=== PATIENT | female | born 1995 | race Caucasian/White ===

== ENCOUNTER 2022-06-01 08:07 | Outpatient (CLI) | payer MEDICAID, SELFPAY ==
[2022-06-01 08:29] VITALS: BMI 27.6
[2022-06-01 08:32] VITALS: TEMP 36.7; O2SAT 97
[2022-06-01 08:34] VITALS: BP 104/63; PULSE 98; O2SAT 97
[2022-06-01 09:26] LABS: Bacteria 0 SEEN /hpf (None Seen); Mucous, Urine 0 SEEN /hpf (<or=2+); Red Blood Cells-Urine 0 SEEN /hpf (0-5); White Blood Cells 0 SEEN /hpf (0-5)
[2022-06-01 09:30] LABS: Color, Urine Yellow (Yellow); Glucose, Dipstick Normal (Normal); Ketone-Dipstick Negative (Negative); Leukocyte Esterase-Dipstick Negative /ul (Negative); Nitrite-Dipstick Negative (Negative); Occult Blood-Urine Negative /ul (Negative); Protein-Dipstick Negative (Negative); Specific Gravity, Urine 1.005 (1.002-1.030); Urine Bilirubin Dipstick Negative (Negative); Urine Clarity Clear (Clear); Urine Urobilinogen Normal (Normal)
[2022-06-01 09:40] LABS: Squamous Epithelial Cells - UA 0-5 SEEN /hpf (5-10)
--- NOTE | 2022-06-15 16:42 | OB.TRI.PN_ITS ---
Progress Notes Progress Note: 26 year old female at 21w3d. Presented for abdominal and lower back pain. Laboratory Studies: Laboratory Tests 06/01/22 Range/Units 09:20 Urine Color Yellow (Yellow) Urine Clarity Clear (Clear) Urine pH 7.0 (5.0 - 8.0) Ur Specific [place] 1.005 (1.002-1.030) Urine Protein Negative (Negative) mg/dl Urine Glucose (UA) Normal (Normal) mg/dl Urine Ketones Negative (Negative) mg/dl Urine Occult Blood Negative (Negative) /ul Urine Nitrite Negative (Negative) Urine Bilirubin Negative (Negative) mg/dL Urine Urobilinogen Normal (Normal) mg/dl Ur Leukocyte Esterase Negative (Negative) /ul Urine RBC 0 SEEN (0-5) /hpf Urine WBC 0 SEEN (0-5) /hpf Ur Squamous Epith Cells 0-5 SEEN (5-10) /hpf Urine Bacteria 0 SEEN (None Seen) /hpf Urine Mucus 0 SEEN (<or=2+) /hpf FHR 155 Assessment & Plan (1) Abdominal pain affecting : PLAN: Plan No signs of PTL D/C home
== END 2022-06-01 09:20 | disposition home or self-care (01) ==
PROVIDERS: Referring Provider Advanced Practice Midwife; Visit Provider Advanced Practice Midwife
DX: O26.892 Other specified pregnancy related conditions, second trimester (principal); R10.9 Unspecified abdominal pain; M54.50 Low back pain, unspecified; Z3A.21 21 weeks gestation of pregnancy
CPT/HCPCS: 59050; 81001; 87086; 87088

== ENCOUNTER 2022-09-21 19:45 | Outpatient (CLI) | payer MEDICAID, SELFPAY ==
[2022-09-21 20:02] VITALS: BP 118/76; PULSE 77; TEMP 37.2; O2SAT 98
[2022-09-21 20:03] VITALS: TEMP 37.2
[2022-09-21 20:06] VITALS: BMI 29.1
[2022-09-21 22:14] LABS: Group B Strep DNA By PCR Negative (Negative); Internal Control PASS; Probe Check PASS; Specimen Processing Control PASS
--- NOTE | 2022-09-28 16:39 | OB.TRI.PN ---
Progress Notes Progress Note: at 37w3d who presents for contractions. No vaginal bleeding or fluid leakage. Laboratory Studies: Laboratory Tests 09/21/22 Range/Units 20:16 Group B Strep DNA Negative (Negative) Specimen Comment Not Reportable 120, moderate variability, accels, no decels. Assessment & Plan (1) Irregular contractions: PLAN: Plan Irregular contractions, no signs of labor. D/C home
== END 2022-09-21 23:10 | disposition home or self-care (01) ==
LOC: WPOUT 19:56 → WP 19:56
PROVIDERS: Visit Provider Advanced Practice Midwife
DX: O47.1 False labor at or after 37 completed weeks of gestation (principal); Z3A.37 37 weeks gestation of pregnancy
CPT/HCPCS: 59025; 59050; 87081; 87653; 99221; G0378

== ENCOUNTER 2022-10-05 07:05 | Inpatient (IN) | payer MEDICAID, SELFPAY ==
[2022-10-05] VITALS (60 sets, daily range): BP systolic 92–126; BP diastolic 46–73; PULSE 55–88; RESP 15; TEMP 36.2–37; O2SAT 83–100; BMI 28.6
[2022-10-05] MEDS: Oxytocin 15 Units/NS 250ml 15 UNITS/250 ML IV.SOLN 2 UNITS IV (07:49)
[2022-10-05] MEDS: Lactated Ringers 1,000 ML 50 ML IV ×2 (07:49→16:52)
[2022-10-05 08:02] LABS: Basophil# 0.03 X10^3/uL; Basophil% 0.2 % (0-1); Eosinophil# 0.02 X10^3/uL; Eosinophils% 0.1 % (0-5); Hematocrit 34.4 % (37-47); Hemoglobin 11.8 g/dL (12.0-15.0); Lymphocyte % 20.1 % (19-41); Mean Corp Hgb Conc 34.3 g/dL (32-36); Mean Corpuscular Hgb 31.7 pg (27.0-32.0); Mean Corpuscular Volume 92.5 fL (81-99); Mean Platelet Vol. 10.1 fl (6.2-12.0); Monocyte# 0.59 X10^3/uL; Monocyte% 4.4 % (0-10); NRBC Flagged by Analyzer 0 % (0-5); Neutrophil # 9.99 X10^3/uL (2.7-7.7); Neutrophil % 74.4 % (47-70); Platelet Count 219 K/mm3 (150-450); RBC Distribution Width SD 43.8 fl (35.1-43.9); Red Blood Count 3.72 M/mm3 (4.2-5.4); White Blood Count 13.4 K/mm3 (4.4-11.0)
--- NOTE | 2022-10-05 08:23 | PCM.HP.OB ---
HPI - General General Date of Admission: 10/05/22 HPI Narrative JEANMARIE ROSE, is a 27 F at 39.3 weeks gestation who presents for elective induction of labor. complicatted by tobacco use and HGSIL on PAP. She has a history of depression. Maternal Data Information GORAN Calculator Estimated Delivery Date Method Current WG Current Estimate 10/09/22 Manual 39w 3d PFSH PFSH Medical History depression Home Medications 1 tab PO/SL DAILY Check with primary doctor 06/01/22 [History Last Taken 10/05/22 04:00] ondansetron HCl 4 mg tablet 4 mg PO PRN PRN Nausea And Vomiting 06/01/22 [History Last Taken 10/05/22 04:00] Allergy/AdvReac Type Severity Reaction Status Date / Time No Known Allergies Allergy Verified 09/21/22 20:08 Surgical History (Updated 10/05/22 @ 07:36 by Abi Escobar) History of surgery ROS Eyes Eyes: Denies blurry vision, change in vision or spots in vision ENT HEENT: Denies dizziness or headache(s) Cardiovascular Cardiovascular: Denies abdominal pain, chest pain or dyspnea Respiratory/Chest Respiratory/Chest: Denies cough, dyspnea, shortness of breath at rest or shortness of breath with exertion Gastrointestinal Gastrointestinal: Denies abdominal pain, diarrhea or vomiting Genitourinary Genitourinary: Denies change in urinary stream, difficulty urinating or dysuria Musculoskeletal Musculoskeletal: Reports none Integumentary Integumentary: Denies rash Neurologic Neurologic: Denies dizziness, headache(s), memory loss or weakness Psychiatric Psychiatric: Reports none Vital Signs Vital Signs Vital Signs: 10/05/22 07:48 10/05/22 07:48 10/05/22 07:49 Temperature Temperature Source Pulse Rate 82 Blood Pressure 113/58 L BP Systolic 113 BP Diastolic 58 Pulse Ox 98 10/05/22 07:49 10/05/22 07:43 10/05/22 07:43 Temperature 98.5 F Temperature Source Temporal Pulse Rate 86 Blood Pressure BP Systolic BP Diastolic Pulse Ox Weight Weight: 188 lb 8 oz Body Mass Index (BMI) 28.6 Physical Exam Const alert, oriented x3 and no apparent distress General Appearance: cooperative Orientation / Consciousness: awake Exam Limitations: no limitations HEENT normocephalic Head and Scalp: normal to inspection Eyes General Eye: normal appearance of both eyes Neck full ROM and no lymphadenopathy Lymph Lymphatic: no lymphadenopathy noted Chest inspection of chest normal Resp normal respiratory effort, normal air movement and clear to auscultation bilaterally Effort and Inspection: able to speak in complete sentences and symmetric chest movement Cardio regular rate and regular rhythm GI normal to inspection, nondistended, normoactive bowel sounds Manual OB Exam: presentation cephalic, dilated 4, effaced 80 and station 0 Amniotic Fluid: clear amniotic fluid Back/Spine normal ROM Extremity full ROM and no calf tenderness Skin no rashes or lesions noted General Skin Exam: no breakdown Neuro oriented x3 and CN's II-XII intact bilaterally Psych mental status grossly normal and thought process normal Labs Labs Labs: Blood Type Pending Antibody Screen Pending Hct 34.4 % (37-47) L Hgb 11.8 g/dL (12.0-15.0) L Syphilis Total Ab Pending Group B Strep DNA Negative (Negative) Assessment & Plan (1) 39 weeks gestation of : (2) Elective induction of labor planned: (3) History of depression: (4) Tobacco use affecting , antepartum: (5) HGSIL (high grade squamous intraepithelial lesion) on Pap smear of cervix: PLAN: Plan Admit to labor and delivery CE- /-3- ballotable GBS negative Routine labs Start IV and run fluids per orders Start Pitocin at 2 mu /min and increase per policy Epidural when indicated Anticipate Dr. Eli notified of admission and is collaborating physician
[2022-10-05 08:40] LABS: Syphilis Antibodies Non-reactive
[2022-10-05] MEDS: LACTATED RINGERS 500 ML 999 ML IV (12:50)
[2022-10-05] MEDS: fentaNYL-bupivacaine (epidural) 100 ML BAG EPIDURAL (13:37)
--- NOTE | 2022-10-05 16:55 | PN.OBGYN_ITS ---
Subjective Subjective Patient seen at bedside. Comfortable with epidural anesthesia. Objective Data Objective Data Vital Signs: Vital Signs Temp Pulse BP Pulse Ox 98.1 F 72 113/59 L 100 10/05/22 16:31 10/05/22 16:32 10/05/22 16:32 10/05/22 15:39 Weight: 188 lb 8 oz Body Mass Index (BMI) 28.6 Intake & Output: Intake and Output for Last 24 Hours 10/03/22 10/04/22 10/05/22 23:59 23:59 23:59 Intake Total 993.54 / 993.54 Balance 993.54 / 993.54 Lab / Micro Data Result Diagrams: 10/05/22 07:40 Labs: Laboratory Results - last 24 hr 10/05/22 07:40: WBC 13.4 H, RBC 3.72 L, Hgb 11.8 L, Hct 34.4 L, MCV 92.5, MCH 31.7, MCHC 34.3, RDW Std Deviation 43.8, RDW Coeff of Cristopher 13.0, Plt Count 219, MPV 10.1, Immature Gran % (Auto) 0.800, Neut % (Auto) 74.4 H, Lymph % (Auto) 20.1, [place] % (Auto) 4.4, Eos % (Auto) 0.1, Baso % (Auto) 0.2, Absolute Neuts (auto) 10.0 H, Absolute Lymphs (auto) 2.70, Nucleated RBC % 0 10/05/22 07:40: Blood Type A POSITIVE, Antibody Screen NEGATIVE 10/05/22 07:40: Syphilis Total Ab Non-reactive Assessment & Plan (1) Elective induction of labor planned: (2) 39 weeks gestation of : (3) Spontaneous rupture of amniotic membranes: PLAN: Plan SROM upon entering patient's room for clear fluid CE- 6/-1 Cat. 1 tracing, NST reactive Continue Pitocin IV per policy Anticipate
--- NOTE | 2022-10-05 17:34 | EX.PCM.OBRPT ---
Assessment & Plan (1) (spontaneous vaginal delivery): (2) Laceration, obstetrical, first degree: (3) History of depression: Maternal Data Information GORAN Calculator Estimated Delivery Date Method Current WG Current Estimate 10/09/22 Manual 39w 3d Vaginal Delivery Maternal Presentation Maternal Presentation: Elective Induction Maternal Presentation: at 39.3 weeks gestation for scheduled elective induction. Type of Induction: Pitocin Operative Information Date of Procedure: 10/05/22 Pre-Operative Diagnosis: Term gestation, elective induction of labor Post-Operative Diagnosis: , live female Surgery / Procedure Performed: Spontaneous Vaginal Delivery Type of Anesthesia: Epidural Drain: [place] to straight drain Estimated Blood Loss: 200 Time of Delivery: 17:06 Findings Description of Procedure: Patient feeling pressure. Found to be complete dilation and +2 station. With minimal maternal effort, on first push, head delivered followed by anterior shoulder and remainder of body without traction. Vigorous female placed on maternal abdomen and attended to by nursing staff. Pitocin IV started for active management of the third stage of labor. Cord clamped and cut after 4 minute delay by FOB. placed skin to skin with patient. Placenta delivered spontaneously and intact. First degree laceration repaired in usual fashion using 3-0 Vicryl Rapid. Hemostasis obtained. Fundus firm 2 below U. EBL 200 cc. APGARS 9/9. Patient and infant bonding well at this time. Planning on formula feeding. Dr. Eli notified of delivery. Presentation: Vertex Amniotic Membrane Rupture Type: Spontaneous Time of Membrane Rupture: 1645 Amniotic Fluid Description: Clear Placental Delivery Description: Spontaneous Placenta Disposition: [facility] Cord Vessel Description: 3 Vessels Cord Entanglement: None Infant A Gender: Female (1 minute): 9 (5 minute): 9 Delayed Cord Clamping: Yes Post Vaginal Delivery Medications Given After Delivery: IV Pitocin Episiotomy Description: None Laceration: 1st degree Complication Complications: None
[2022-10-05] MEDS: Oxytocin 15 Units/NS 250ml 15 UNITS/250 ML IV.SOLN 83 UNITS IV (17:39)
[2022-10-06] VITALS (8 sets, daily range): BP systolic 106–128; BP diastolic 55–72; PULSE 67–88; RESP 15–18; TEMP 36.2–36.9; O2SAT 98
[2022-10-06] MEDS: 0.9% Saline Lock 10 ML Syringe IV (00:03)
--- NOTE | 2022-10-06 07:25 | PCM.PN.OB ---
Subjective Subjective Patient seen at bedside. Ambulating and voiding without difficulty. Denies any pain. Denies any headache, vision changes, dizziness, SOB or CP. Formula feeding. Desires discharge home at 24 hours. Objective Data Objective Data Vital Signs: Vital Signs Temp Pulse Resp BP Pulse Ox O2 Del Method 97.8 F 75 15 128/72 H 98 Room Air 10/06/22 04:17 10/06/22 04:17 10/06/22 04:17 10/06/22 04:17 10/06/22 04:17 10/06/22 04:17 Oxygen Delivery Method Room Air Weight: 188 lb 8 oz Body Mass Index (BMI) 28.6 Intake & Output: Intake and Output for Last 24 Hours 10/04/22 10/05/22 10/06/22 23:59 23:59 23:59 Intake Total 1471.67 / 1471.67 Output Total 275 / 400 725 / 725 Balance 1196.67 / 1071.67 -725 / -725 Lab / Micro Data Result Diagrams: 10/05/22 07:40 Labs: Laboratory Results - last 24 hr 10/05/22 07:40: WBC 13.4 H, RBC 3.72 L, Hgb 11.8 L, Hct 34.4 L, MCV 92.5, MCH 31.7, MCHC 34.3, RDW Std Deviation 43.8, RDW Coeff of Cristopher 13.0, Plt Count 219, MPV 10.1, Immature Gran % (Auto) 0.800, Neut % (Auto) 74.4 H, Lymph % (Auto) 20.1, [place] % (Auto) 4.4, Eos % (Auto) 0.1, Baso % (Auto) 0.2, Absolute Neuts (auto) 10.0 H, Absolute Lymphs (auto) 2.70, Nucleated RBC % 0 10/05/22 07:40: Blood Type A POSITIVE, Antibody Screen NEGATIVE 10/05/22 07:40: Syphilis Total Ab Non-reactive ROS Eyes Eyes: Denies blurry vision, change in vision or spots in vision ENT HEENT: Denies dizziness or headache(s) Cardiovascular Cardiovascular: Denies abdominal pain, chest pain or dyspnea Respiratory/Chest Respiratory/Chest: Denies cough, dyspnea, shortness of breath at rest or shortness of breath with exertion Gastrointestinal Gastrointestinal: Denies abdominal pain, diarrhea or vomiting Genitourinary Genitourinary: Denies change in urinary stream, difficulty urinating or dysuria Musculoskeletal Musculoskeletal: Reports none Integumentary Integumentary: Denies rash Neurologic Neurologic: Denies dizziness, headache(s), memory loss or weakness Physical Exam Const alert and no apparent distress General Appearance: cooperative and comfortable Exam Limitations: no limitations HEENT normocephalic Eyes General Eye: normal appearance of both eyes Neck full ROM General: normal visual inspection Chest Chest: symmetrical chest wall rise Resp normal respiratory effort and normal air movement Effort and Inspection: symmetric chest movement Auscultation: clear to auscultation bilaterally Cardio regular rate and regular rhythm GI normal to inspection, nondistended, normoactive bowel sounds Back/Spine normal ROM Extremity full ROM and no calf tenderness General Extremity: normal exam except as noted Skin no rashes or lesions noted Neuro CN's II-XII intact bilaterally Psych mental status grossly normal Assessment & Plan (1) Laceration, obstetrical, first degree: (2) (spontaneous vaginal delivery): PLAN: Plan PPD 1 Routine care Pain control Needs LEEP PP Interested in tubal ligation after 6 weeks D/C home with follow up in office
--- NOTE | 2022-10-06 07:28 | DCINST_ITS ---
Discharge Instructions Diet Discharge Diet: No restrictions Activity Discharge Activity: Return to Normal Activity, May Shower and May Take a Tub Bath May resume sexual activity in: 4-6 weeks Weight Bearing Status: Weight bearing as tolerated Dressing / Incision Call your doctor if you observe: Inability to urinate, Using more than 1 pad per hour, Shortness of breath, Dizziness, Swelling in the ankles, Chest pain, Calf discomfort and Uncontrolled pain Follow Up Care When: Within 10 days Test Results: Test results from this visit will be discussed in further detail at your follow- up appointment, if applicable. Discharge Plan Admission Admit Date/Time: 10/05/22 07:05 Primary Reason for Your Visit: Labor and Delivery Attending Provider: Maria L Akers Discharge Orders/Prescriptions Prescriptions: Continued 1 tab PO/SL DAILY Discontinued ondansetron HCl [Zofran] 4 mg Tablet 4 mg PO PRN PRN (Reason: Nausea And Vomiting) Referrals / Follow Up: Maria L Akers CNM [Med Staff - Adv Practice Prof] - Disposition Disposition (needs filled in before D/C Order can be placed): Home, Self Care
[2022-10-06] MEDS: Acetaminophen 500 MG Tablet 1000 MG PO (10:24)
== END 2022-10-06 18:50 | disposition home or self-care (01) | DRG 560 ==
PROVIDERS: Admitting Provider Advanced Practice Midwife; Referring Provider Advanced Practice Midwife; Visit Provider Advanced Practice Midwife
DX: O70.0 First degree perineal laceration during delivery (principal); Z37.0 Single live birth; F17.200 Nicotine dependence, unspecified, uncomplicated; O99.892 Other specified diseases and conditions complicating childbirth; Z3A.39 39 weeks gestation of pregnancy; R87.613 High grade squamous intraepithelial lesion on cytologic smear of cervix (HGSIL); O99.334 Smoking (tobacco) complicating childbirth; Z86.59 Personal history of other mental and behavioral disorders
CPT/HCPCS: 59025; 59050; 85025; 86780; 86850; 86900; 86901; 99221; J7120; A4216; G0378

== ENCOUNTER 2023-04-11 19:53 | Emergency (ER) | payer MEDICAID, SELFPAY ==
[2023-04-11 19:54] VITALS: BP 88/79; PULSE 82; RESP 16; TEMP 36.6; O2SAT 99; BMI 28.6
[2023-04-11 20:00] VITALS: BP 124/67
--- NOTE | 2023-04-11 20:09 | US_ITS ---
STUDY: FIRST TRIMESTER OBSTETRICAL ULTRASOUND REASON FOR EXAM: Female, 27 years old Threatened miscarriage -- BLEEDING W/ LMP: 01/29/2023 TECHNIQUE: Transvaginal TECHNICAL QUALITY: Adequate. PRIOR ULTRASOUND: None. FINDINGS: There is visualization of a single gestational sac in a normal intrauterine position. The mean sac diameter (MSD) measures 46 mm, indicating an estimated gestational age (EGA) of 10 weeks, 1 days. The gestational sac shape is within normal limits. 4 cm hypoechoic area adjacent to the gestational sac consistent with a subchorionic hemorrhage (implantation bleed). There is a visualized yolk sac. The yolk sac measures 4 mm. The placenta is non-visualized. There is visualization of a live embryo. The crown-rump length (CRL) measures 32 mm, indicating an estimated gestational age (EGA) of 9 weeks, 6 days. There is demonstrated cardiac activity with a heart rate of 166 bpm. The estimated gestation age (EGA) by LMP is 10 weeks, 2 days. The estimated date of delivery (GORAN) by LMP is 11/05/2023. The estimated gestation age (EGA) by US is 10 weeks, 0 days. The estimated date of delivery (GORAN) by US is 11/07/2023. The uterus measures 12.0 x 6.5 x 9.0 cm. There is no demonstrated uterine fibroid. The cervix is closed. The right ovary measures 3.2 x 2.2 x 3.0 cm. There is no right ovarian cyst. There is no visualized right adnexal mass or complex lesion. The left ovary measures 4.0 x 2.6 x 3.5 cm. There is no left ovarian cyst. There is no visualized left adnexal mass or complex lesion. There is no fluid in the cul de sac. US/Transvaginal w/Preg US IMPRESSION: Living intrauterine of 10 weeks 0 days as described above. 4 cm subchorionic hemorrhage (implantation bleed) Electronically Signed: Edmundo Olivera MD at 23:28 EDT ,
--- NOTE | 2023-04-11 20:28 | ED.VIS.FEGU ---
HPI HPI - Female History of Present Illness Chief Complaint: Vag Bld, Preg Narrative Narrative: Patient presents with nontraumatic painless vaginal bleeding that started tonight, she equates it to the same as a menstrual cycle. She is about 10 weeks by dates. She is G4, P3 without any prior complications. She delivered last child 6 months ago and is not breast-feeding. [facility] Medical History 39 weeks gestation of Elective induction of labor planned HGSIL (high grade squamous intraepithelial lesion) on Pap smear of cervix History of depression Laceration, obstetrical, first degree depression (spontaneous vaginal delivery) Tobacco use affecting , antepartum Home Medications NK 04/11/23 [History Last Taken Unknown] Allergy/AdvReac Type Severity Reaction Status Date / Time No Known Allergies Allergy Verified 04/11/23 19:54 Surgical History History of surgery Social History Smoking Status: Current every day smoker tobacco type: e-cigarettes ROS ROS ED ROS Narrative Past medical history: Reviewed Medications: Reviewed Social history: Noncontributory Review of systems: All systems negative except as indicated General: No fever Cardiovascular: No chest pain Respiratory: No shortness of breath or cough Gastrointestinal: Abdominal pain, no pelvic pain or cramping. Genitourinary: No dysuria. Vaginal bleeding as in HPI Musculoskeletal: Denies myalgias no difficulty with ambulation Skin: No rash Neurological: No memory loss, confusion or any focal weakness Hematologic: No easy bleeding or easy bruising EXAM Physical Exam Narrative Exam Narrative: Physical exam General: Well nourished, Well developed, No Acute Distress Head: Normocephalic, Atraumatic Eyes: Conjunctiva not pale ENT: Moist mucous membranes Neck: Supple, Nontender, No lymphadenopathy Cardiovascular: Regular rate, Regular rhythm Respiratory: No distress, CTA bilaterally Abdomen: Soft, Nontender, Nondistended : Deferred Back: Nontender, Normal Inspection. Negative for: CVA tenderness Extremities: Nontender, No edema Skin: No pallor Const Vital Signs: 04/11/23 19:54 04/11/23 20:00 Temperature 98 F Temperature Source Temporal Pulse Rate 82 Respiratory Rate 16 Blood Pressure 88/79 L 124/67 H Blood Pressure Mean 82 86 Pulse Ox 99 MDM MDM MDM Narrative Medical decision making narrative: Patient is Rh+ therefore no RhoGAM is needed. There is no evidence of a urinary tract infection. Patient does have an intrauterine with heart rate of 166. She had 1 low blood pressure but immediately after taking it again it was normal and she has been normal sinus therefore I believe is a false reading. She appears well, she is told to have bedrest for a few days. She can follow-up with her OB. Lab Data Labs: Laboratory Results - last 24 hr 04/11/23 20:30 HCG, Quant [id number] H Urine Color Yellow Urine Clarity Clear Urine pH 8.0 Ur Specific [place] 1.015 Urine Protein Negative Urine Glucose (UA) Normal Urine Ketones Negative Urine Occult Blood 50 H Urine Nitrite Negative Urine Bilirubin Negative Urine Urobilinogen Normal Ur Leukocyte Esterase 25 H Urine RBC 0-5 SEEN Urine WBC 0-5 SEEN Ur Squamous Epith Cells 0-5 SEEN Urine Bacteria RARE Urine Mucus 0 SEEN Blood Type A POSITIVE Radiography Diagnostic Testing: Clinical Impression(s) from Imaging Studies Obstetrics Ultrasound 04/11/23 20:09 IMPRESSION: Living intrauterine of 10 weeks 0 days as described above. 4 cm subchorionic hemorrhage (implantation bleed) Electronically Signed: Edmundo Olivera MD at 23:28 EDT , Discharge Plan Triage Chief Complaint: Vag Bld, Preg ED Provider: Pierre Dixon Dx/Rx/DC Orders Clinical Impression: Threatened miscarriage, Abnormal vaginal bleeding, Subchorionic bleed Instructions: Bleeding During Early Prescriptions: No Action NK Primary Care Provider: Care Physician,No Primary Referrals: Care Physician,No Primary [Primary Care Provider] - Activity Restrictions/Additional Instructions: Follow-up with your OB in the next 2 to 3 days Disposition Disposition: Home, Self Care
[2023-04-11 20:35] LABS: Mucous, Urine 0 SEEN /hpf (<or=2+)
[2023-04-11 20:39] LABS: Color, Urine Yellow (Yellow); Glucose, Dipstick Normal (Normal); Ketone-Dipstick Negative (Negative); Leukocyte Esterase-Dipstick 25 /ul (Negative); Nitrite-Dipstick Negative (Negative); Occult Blood-Urine 50 /ul (Negative); Protein-Dipstick Negative (Negative); Specific Gravity, Urine 1.015 (1.002-1.030); Urine Bilirubin Dipstick Negative (Negative); Urine Clarity Clear (Clear); Urine Urobilinogen Normal (Normal)
[2023-04-11 20:53] LABS: Bacteria RARE /hpf (None Seen); Red Blood Cells-Urine 0-5 SEEN /hpf (0-5); Squamous Epithelial Cells - UA 0-5 SEEN /hpf (5-10); White Blood Cells 0-5 SEEN /hpf (0-5)
== END 2023-04-11 23:43 | disposition home or self-care (01) ==
PROVIDERS: Emergency Provider Emergency Medicine; Visit Provider Emergency Medicine
DX: O20.0 Threatened abortion (principal); F17.210 Nicotine dependence, cigarettes, uncomplicated; O20.8 Other hemorrhage in early pregnancy; O99.331 Smoking (tobacco) complicating pregnancy, first trimester; Z3A.10 10 weeks gestation of pregnancy
CPT/HCPCS: 76817; 81001; 84702; 86900; 86901; 99282; A4216

== ENCOUNTER 2023-06-11 08:32 | Emergency (ER) | payer MEDICAID, SELFPAY ==
[2023-06-11 08:34] VITALS: BP 118/56; PULSE 99; RESP 16; TEMP 36.2; O2SAT 98; BMI 27.7
--- NOTE | 2023-06-11 08:46 | US_ITS ---
STUDY: SECOND AND THIRD TRIMESTER OBSTETRICAL ULTRASOUND - LIMITED REASON FOR EXAM: Female, 27 years old 19 WKS BLEEDING AND CRAMPING LMP: January 29, 2023. PRIOR ULTRASOUND: Comparison is made with prior study dated April 11, 2023. TECHNIQUE: Transabdominal TECHNICAL QUALITY: Adequate. FINDINGS: There is a single intrauterine fetus. The fetus is in a breech presentation. There is demonstrated cardiac activity with a heart rate of 157 bpm. There is a normal amniotic fluid volume. The largest amniotic fluid pocket measures 5.7 cm. The amniotic fluid index (JOHNY) is within normal limits. The placenta is right lateral in location and is not low lying. The tip of the placenta is at 3.5 cm from the cervical os. There are Grade 0 placental changes. The cervix measures 4.2 cm in length. BIOMETRY: Age by LMP: 19 weeks, 0 days. GORAN by LMP: November 05, 2023. age by prior US: 18 weeks, 5 days. GORAN by prior US: November 07, 2023. age by current US: 19 weeks, 0 days. GORAN by current US: November 05, 2023. US/OB Limited (No Biometrics) IMPRESSION: Single live uterine gestation with a mean gestational age of 18 weeks and 5 days. Electronically Signed: Jose Alfredo Vizcaino MD at 11:11 EST ,
--- NOTE | 2023-06-11 08:48 | EDS_ITS ---
HPI HPI - Female History of Present Illness Chief Complaint: Vag Bld, Preg Informant: patient Narrative Narrative: 27-year-old female presenting at 19 weeks with vaginal bleeding and cramping. Patient states that 2 days ago she began to have some pelvic cramping. This resolved. This morning around 0530 hrs. she developed cramping and notes some bright red bleeding. She states she is not soaking pads. No lightheadedness near syncope or syncope. Patient is G4, P3. She notes that she had a subchorionic bleed earlier this that was reported to have resolved. She sees [facility] obstetrics locally. Currently taking vitamins and as needed Zofran. She denies any other symptomology. She did not speak with the today or when the cramping began a couple days ago. [facility] Medical History 39 weeks gestation of Elective induction of labor planned HGSIL (high grade squamous intraepithelial lesion) on Pap smear of cervix History of depression Laceration, obstetrical, first degree depression (spontaneous vaginal delivery) Tobacco use affecting , antepartum Home Medications NK 04/11/23 [History Last Taken Unknown] Allergy/AdvReac Type Severity Reaction Status Date / Time No Known Allergies Allergy Verified 06/11/23 08:33 Surgical History History of surgery Social History Smoking Status: Current every day smoker tobacco type: e-cigarettes ROS ROS ED Constitutional Constitutional ED: Denies chills or weight loss Eyes Eyes: Denies change in vision or diplopia ENT ENT ED: Denies ear pain, rhinorrhea or sore throat Cardiovascular Cardiovascular: Denies chest pain, orthopnea, palpitations or racing heartbeat Respiratory/Chest Respiratory/Chest: Denies cough, dyspnea or orthopnea Gastrointestinal Gastrointestinal: Denies abdominal pain, diarrhea, nausea or vomiting Genitourinary Genitourinary ED: Reports other Details: Pelvic cramping and bleeding ; Denies dysuria, hematuria or urinary frequency Musculoskeletal Musculoskeletal: Denies arthralgias or myalgias Integumentary Denies abscess or rash Neurologic Neurologic: Denies headache(s) or weakness Psychiatric Psychiatric: Denies anxiety, depression, suicidal ideation or suicidal thoughts Endocrine Endocrinology: Denies polydipsia, polyphagia or polyuria Allergic/Immunologic Allergic/Immunologic ED: Denies mouth swelling, tongue swelling or urticaria EXAM Physical Exam Const Vital Signs: 06/11/23 08:34 Temperature 97.2 F L Temperature Source Temporal Pulse Rate 99 Respiratory Rate 16 Blood Pressure 118/56 L Blood Pressure Mean 76 Pulse Ox 98 Oxygen Delivery Method Room Air Positive well nourished and well developed General Appearance ED: well developed HEENT Reports normocephalic, head/scalp atraumatic and moist mucous membranes Eyes PERRL and EOMs intact bilaterally Neck no lymphadenopathy, supple and no JVD Resp normal respiratory effort and clear to auscultation bilaterally Cardio regular rate, regular rhythm and no murmurs GI normal to inspection, nondistended, normoactive bowel sounds and non-tender Palpation: soft Narrative: Pelvic examination reveals no active bleeding. Cervix appears closed and is nontender. There appears to be a discharge that is thick and brown possibly representing old blood. There is no foul odor. Pelvis nontender. Back/Spine no CVA tenderness and normal ROM Extremity normal to inspection General Extremety ED: Negative for edema General Extremity: Negative for edema Neuro oriented x3 and CN's II-XII intact bilaterally Sensorium / Orientation: alert Motor Exam: strength 5/5 throughout Psych mental status grossly normal Mood & Affect: Negative for depressed or tearful Skin no rashes or lesions noted and no wounds MDM MDM MDM Narrative Medical decision making narrative: GC chlamydia negative. Trichomonas ADAL negative. Pelvic ultrasound shows a single live intrauterine gestation measuring approximately 18 weeks 5 days. No obvious source of the bleeding was seen. I do not see any active bleeding at this time. She will be discharged home with pelvic rest instructions to follow- up with gynecology obstetrics soon as possible Radiography Diagnostic Testing: Clinical Impression(s) from Imaging Studies Obstetrics Ultrasound 06/11/23 08:46 IMPRESSION: Single live uterine gestation with a mean gestational age of 18 weeks and 5 days. Electronically Signed: Jose Alfredo Vizcaino MD at 11:11 EST , Discharge Plan Triage Chief Complaint: Vag Bld, Preg ED Provider: Rafi Vicente Dx/Rx/DC Orders Clinical Impression: Pelvic cramping, Vaginal bleeding, Second trimester Instructions: 2nd Trimester Changes Prescriptions: No Action NK Primary Care Provider: Care Physician,No Primary Referrals: Leta Koroma MD [Med Staff - Active Staff] - As soon as possible Care Physician,No Primary [Primary Care Provider] - Activity Restrictions/Additional Instructions: Please avoid heavy lifting prolonged standing. Would recommend pelvic rest as discussed. Disposition Disposition: Home, Self Care
[2023-06-11 11:19] VITALS: RESP 16
== END 2023-06-11 11:20 | disposition home or self-care (01) ==
PROVIDERS: Emergency Provider Emergency Medicine; Visit Provider Emergency Medicine
DX: O26.892 Other specified pregnancy related conditions, second trimester (principal); R10.2 Pelvic and perineal pain; O99.332 Smoking (tobacco) complicating pregnancy, second trimester; Z3A.18 18 weeks gestation of pregnancy; O20.9 Hemorrhage in early pregnancy, unspecified; F17.290 Nicotine dependence, other tobacco product, uncomplicated
CPT/HCPCS: 76815; 87210; 87491; 87591; 99282

== ENCOUNTER 2023-10-22 15:20 | Inpatient (IN) | payer MEDICAID, SELFPAY ==
[2023-10-22] VITALS (43 sets, daily range): BP systolic 106–121; BP diastolic 55–77; PULSE 57–79; RESP 16; TEMP 36.3–36.7; O2SAT 96–100; BMI 31.0
--- NOTE | 2023-10-22 15:19 | PCM.HP.OB ---
HPI - General General Date of Admission: 10/22/23 Date of Service: 10/22/23 Chief Complaint: SROM HPI Narrative JEANMARIE ROSE, is a 28 F who presents after SROM for clear fluid at home. She reports contractions for a few days. Worsening contractions this morning followed by large gush of clear fluid at home today at 1330. No bleeding. Good FM. She offers no complaints. [facility] Medical History 39 weeks gestation of Elective induction of labor planned HGSIL (high grade squamous intraepithelial lesion) on Pap smear of cervix History of depression Laceration, obstetrical, first degree depression (spontaneous vaginal delivery) Tobacco use affecting , antepartum Home Medications NK 04/11/23 [History Last Taken Unknown] Allergy/AdvReac Type Severity Reaction Status Date / Time No Known Allergies Allergy Verified 06/11/23 08:33 Surgical History History of surgery Social History Smoking Status: Current every day smoker tobacco type: e-cigarettes History Elective abortions Hx Para 2 Spontaneous abortions Hx # Term Pregnancies Ectopic pregnancies Hx # Pregnancies Multiple births # of living children NST FHR Rate Baby A Baseline: 120 Variability:: Moderate Accelerations:: 15 x 15 Decelerations:: None NST Reactive:: Yes FHR Category:: Category I Uterine Activity:: ctx's q 2-4 min Physical Exam Const alert and no apparent distress General Appearance: comfortable HEENT normocephalic Resp normal respiratory effort GI GI Narrative: Gravid Narrative: Cvx 2 cm and grossly ruptured on exam with clear fluid per nursing staff Labs Labs Labs: Blood Type A POSITIVE Antibody Screen NEGATIVE Hct 34.4 % (37-47) L Hgb 11.8 g/dL (12.0-15.0) L Obstetrics Ultrasound Syphilis Total Ab Non-reactive Group B Strep DNA Negative (Negative) Assessment & Plan (1) 38 weeks gestation of : PLAN: Admit for SROM. Plans epidural for pain control. GBS negative. Pitocin ordered if needed for augmentation. Category 1 tracing. EFW < 4500 g and pelvis adequate. Anticipate vaginal delivery. Discussed with Casandra Angel CNM who is fire control technician g provider today. (2) Spontaneous rupture of amniotic membranes: (3) Tobacco use:
[2023-10-22 16:19] LABS: Absolute Lymphocyte Count 2.17 X10^3/uL (0.83-4.51); Absolute Neutrophil Count 6.9 X10^3/uL (2.0-7.7); Basophil# 0.03 X10^3/uL; Basophil% 0.3 % (0-1); Eosinophil# 0.03 X10^3/uL; Eosinophils% 0.3 % (0-5); Hematocrit 32.4 % (37-47); Hemoglobin 10.8 g/dL (12.0-15.0); Lymphocyte # 2.17 X10^3/ul (0.83-4.51); Lymphocyte % 22.3 % (19-41); Mean Corp Hgb Conc 33.3 g/dL (32-36); Mean Corpuscular Hgb 29.5 pg (27.0-32.0); Mean Corpuscular Volume 88.5 fL (81-99); Mean Platelet Vol. 10.8 fl (6.2-12.0); Monocyte# 0.55 X10^3/uL; Monocyte% 5.6 % (0-10); NRBC Flagged by Analyzer 0 % (0-5); Neutrophil # 6.91 X10^3/uL (2.7-7.7); Platelet Count 196 K/mm3 (150-450); RBC Distribution Width CV 12.7 % (11.6-14.6); RBC Distribution Width SD 40.9 fl (35.1-43.9); Red Blood Count 3.66 M/mm3 (4.2-5.4); White Blood Count 9.7 K/mm3 (4.4-11.0)
[2023-10-22] MEDS: Lactated Ringers 1,000 ML 50 ML IV ×2 (16:19→16:22)
[2023-10-22] MEDS: LACTATED RINGERS 500 ML 999 ML IV (16:30)
[2023-10-22 16:59] LABS: Syphilis Antibodies Non-reactive
[2023-10-22] MEDS: fentaNYL-bupivacaine (epidural) 100 ML BAG EPIDURAL ×2 (17:08→21:43)
[2023-10-22] MEDS: Oxytocin 15 Units/NS 250ml 15 UNITS/250 ML IV.SOLN 2 UNITS IV (18:03)
[2023-10-22] MEDS: Lactated Ringers 1,000 ML 200 ML IV (23:10)
[2023-10-23] VITALS (25 sets, daily range): BP systolic 101–140; BP diastolic 55–92; PULSE 56–83; RESP 16–20; TEMP 36.4–37.1; O2SAT 96–98
[2023-10-23] MEDS: fentaNYL-bupivacaine (epidural) 100 ML BAG EPIDURAL (02:42)
--- NOTE | 2023-10-23 03:09 | OP.PCM_ITS ---
Assessment & Plan (1) Vaginal delivery: COMMENT: KW girl SROM [facility] Maternal Data Information Final GORAN: 11/05/23 Final GORAN Source: US >20 weeks Gestational age: 38.1 Vaginal Delivery Maternal Presentation Maternal Presentation: Active Labor Maternal Presentation: Staff assist all call for bradycardia. PAtient was placed in hands and knees and [facility] called for delivery and in route. Nurse called out of the room for provider on the floor, head had delivered. Delivered the head in EDGARDO presentation. The head was delivered atraumatically and a loose nuchal cord was identified and was easily reduced over the infant's head. The anterior and posterior shoulders delivered without complication followed by the rest of the infant and the infant was given to FOB to hold while patient safely came down from hands and knees position. Delayed cord clamping was employed for approximately 3 minutes. Cord was clamped and cut and gentle traction was applied to the cord and the placenta delivered spontaneously. Immediately following, it was noted to be intact with a 3 vessel cord. The perineum and vagina were inspected and noted to have no laceration . EBL was 100cc. Patient and infant tolerated delivery well. Apgars 8/8. Dr Marie notified of vaginal delivery and orders reviewed. Physician agrees with current plan of care. Operative Information Date of Procedure: 10/23/23 Pre-Operative Diagnosis: See AP comments Post-Operative Diagnosis: Same Surgery / Procedure Performed: Spontaneous Vaginal Delivery electroencephalographic technician #1: Karina Shah Type of Anesthesia: Epidural Estimated Blood Loss: 100 Time of Delivery: 02:55 Findings Presentation: Vertex Amniotic Membrane Rupture Type: Spontaneous Amniotic Fluid Description: Clear Placental Delivery Description: Spontaneous Placenta Disposition: [facility] Cord Vessel Description: 3 Vessels Cord Entanglement: Around neck x 1, loose Infant A Gender: Female (1 minute): 8 (5 minute): 8 Delayed Cord Clamping: Yes Post Vaginal Delivery Medications Given After Delivery: IV Pitocin Episiotomy Description: None Laceration: None Multi Select Codes Urinary/Genital Urinary/Genital CPT Codes: 20493 Vaginal Delivery Only
[2023-10-23] MEDS: Ondansetron 4 MG/2 ML Vial IV (03:11)
[2023-10-23] MEDS: Oxytocin 15 Units/NS 250ml 15 UNITS/250 ML IV.SOLN 83 UNITS IV (03:35)
[2023-10-23] MEDS: 0.9% Saline Lock 10 ML Syringe IV (06:40)
[2023-10-23] MEDS: Acetaminophen 500 MG Tablet 1000 MG PO (23:16)
[2023-10-24 03:27] VITALS: BP 112/64; PULSE 60; O2SAT 98
[2023-10-24 03:30] VITALS: BP 112/64; PULSE 65; RESP 16; TEMP 36.5; O2SAT 98
[2023-10-24] MEDS: Ibuprofen 600 MG Tablet PO (03:44)
--- NOTE | 2023-10-24 06:40 | PCM.PN.CNM ---
Subjective Subjective Patient seen at bedside. Feeling good. Ambulating and voiding without difficulty. Lochia decreased. Denies any pain. Formula feeding. Desires discharge home today. Objective Data Objective Data Vital Signs: Vital Signs Temp Pulse Resp BP Pulse Ox O2 Del Method 97.7 F L 65 16 112/64 98 Room Air 10/24/23 03:30 10/24/23 03:30 10/24/23 03:30 10/24/23 03:30 10/24/23 03:30 10/24/23 03:30 Oxygen Delivery Method Room Air Weight: 204 lb Body Mass Index (BMI) 31.0 Intake & Output: Intake and Output for Last 24 Hours 10/22/23 10/23/23 10/24/23 23:59 23:59 23:59 Intake Total 872.27 / 872.27 1280.23 / 1280.23 Output Total 700 / 700 Balance 872.27 / 872.27 580.23 / 580.23 Lab / Micro Data 10/22/23 15:40 ROS Eyes Eyes: Denies blurry vision, change in vision or spots in vision ENT HEENT: Denies dizziness or headache(s) Cardiovascular Cardiovascular: Denies abdominal pain, chest pain or dyspnea Respiratory/Chest Respiratory/Chest: Denies cough, dyspnea, shortness of breath at rest or shortness of breath with exertion Gastrointestinal Gastrointestinal: Denies abdominal pain, diarrhea or vomiting Genitourinary Genitourinary: Denies change in urinary stream, difficulty urinating or dysuria Musculoskeletal Musculoskeletal: Reports none Integumentary Integumentary: Denies rash Neurologic Neurologic: Denies dizziness, headache(s), memory loss or weakness Physical Exam Const alert and no apparent distress General Appearance: cooperative and comfortable Exam Limitations: no limitations HEENT normocephalic Eyes General Eye: normal appearance of both eyes Neck full ROM General: normal visual inspection Chest Chest: symmetrical chest wall rise Resp normal respiratory effort and normal air movement Effort and Inspection: symmetric chest movement Auscultation: clear to auscultation bilaterally Cardio regular rate and regular rhythm GI normal to inspection, nondistended, normoactive bowel sounds Back/Spine normal ROM Extremity full ROM and no calf tenderness General Extremity: normal exam except as noted Skin no rashes or lesions noted Neuro CN's II-XII intact bilaterally Psych mental status grossly normal Assessment & Plan (1) Vaginal delivery: PLAN: Plan PPD 2 Routine care Pain control D/C home with follow up in office Time spent on discharge =15 minutes
--- NOTE | 2023-10-24 06:44 | PCM.DC ---
Discharge Instructions Diet Discharge Diet: No restrictions Activity May resume sexual activity in: 6-8 weeks Weight Bearing Status: Weight bearing as tolerated Dressing / Incision Call your doctor if you observe: Fever of 101 or Higher, Inability to urinate, Using more than 1 pad per hour, Shortness of breath, Chest pain, Calf discomfort and Uncontrolled pain Follow Up Care Please Follow Up With: Maria L Akers CNM When: 2 weeks virtual visit/ 6 weeks in office Test Results: Test results from this visit will be discussed in further detail at your follow-up appointment, if applicable. Discharge Plan Admission Admit Date/Time: 10/22/23 15:20 Primary Reason for Your Visit: Labor and Delivery Attending Provider: Casandra Angel Primary Care Provider: Care Physician,No Primary Discharge Orders/Prescriptions Prescriptions: No Action NK Referrals / Follow Up: Maria L Akers CNM [Med Staff - [facility] Prof] - Care Physician,No Primary [Primary Care Provider] - Disposition Disposition (needs filled in before D/C Order can be placed): Home, Self Care
[2023-10-24 07:43] VITALS: BP 123/62; PULSE 63; RESP 16; TEMP 36.5; O2SAT 98
[2023-10-24 07:45] VITALS: TEMP 36.5
[2023-10-24 07:46] VITALS: BP 123/62; PULSE 64
== END 2023-10-24 09:55 | disposition home or self-care (01) | DRG 560 ==
LOC: WPOUT 15:21 → WP 15:23
PROVIDERS: Admitting Provider Advanced Practice Midwife; Visit Provider Advanced Practice Midwife
DX: O76 Abnormality in fetal heart rate and rhythm complicating labor and delivery (principal); Z37.0 Single live birth; F17.210 Nicotine dependence, cigarettes, uncomplicated; O99.334 Smoking (tobacco) complicating childbirth; Z3A.38 38 weeks gestation of pregnancy; O69.81X0 Labor and delivery complicated by cord around neck, without compression, not applicable or unspecified
CPT/HCPCS: 59025; 59050; 85025; 86780; 86850; 86900; 86901; 99221; J7120; A4216; G0378; J2405

== ENCOUNTER 2024-04-07 08:52 | Day surgery (SDC) | payer MEDICAID, SELFPAY ==
[2024-04-07] VITALS (7 sets, daily range): BP systolic 98–126; BP diastolic 59–69; PULSE 53–78; RESP 16–18; TEMP 36.1–36.4; O2SAT 96–99; BMI 29.8
--- NOTE | 2024-04-07 | IMM_PTH ---
PATIENT: JEANMARIE ROSE LOC: [facility] [place] U#:[id number] AGE/SX: 28/F ROOM: RE04/07/[address]: Dr. Lindsay Petty DO : 1995 BED: DIS: 04/07/2024 SPEC #: [id number] RECD: 04/11/24 08:19 STATUS: DENISE REQ #: [id number] KARLA: 04/07/24 00:[address]: Lindsay Petty DEPT: IMMUNOHISTOCHEMISTRY RECD BY: Melquiades Don ENTERED: 04/11/24 08:20 SP TYPE: IMMUNO OTHR DR: No Primary Care Phys Tissues: A - Uterine cervix, NOS B - Uterine cervix, NOS C - UTERINE CERVIX LEEP Procedures: p16 (initial) KI-67 (add) P16 (add) KI-67 (initial) PHYSICIAN & INSTITUTION [place] [address] SPECIMEN INFORMATION: Tissue Source: A- Cervical posterior lip, B- Cervical anterior lip, C- Endocervix Clinical Info: Cervical high risk HPV Specimen Number: [id number] A, B, C CPT code: 60869j8,41390u3 METHODOLOGY: Deparaffinized sections of prefer/formalin-fixed tissue or PAP/DQ stained slides are incubated with monoclonal/polyclonal antibodies/oligonucleotide probes. Localization is made via biotin free immunoperoxidase method. Appropriate controls are performed and reacted as expected. Results on target cell population are indicated in the following table: RESULTS: ANTIBODY / CLONE RESULT Block A P16 (E6H4) positive, focal and patchy Ki-67 (30-9) positive, low Block B P16 (E6H4) positive, rare cells and patchy Ki-67 (30-9) positive, low Block C P16 (E6H4) positive, focal and patchy Ki-67 (30-9) positive, low These tests were developed and their performance characteristics determined by [facility]. They may not have been cleared or approved by the U.S. Food and Drug Administration. The FDA has determined that such clearance or approval is not necessary. The above immunohistochemical/dualISH markers are ordered and reviewed by the Pathologist. INTERPRETATION: A. Cervical posterior lip, leep colonization: Focal minimal changes consistent with HPC cytopathic effects. B. Cervical anterior lip, leep colonization: Focal minimal changes consistent with HPC cytopathic effects. C. Endocervix, leep colonization: Focal minimal changes consistent with HPC cytopathic effects. Case has been reviewed in consultation with Dr. Romeo who concurs with the above diagnosis. IDC:IGNACIA DUNCANmr 04/11/2024
--- NOTE | 2024-04-07 09:09 | PRE.ANES_ITS ---
ASA Classification* ASA Classification ASA Classification: 2 Assessment & Plan Anesthesia* Anesthesia Assessment Anesthesia Assessment: Discussed sedation and/or anesthesia options, risks, benefits, and alternatives with patient/parents/legal guardian/POA. Questions invited. The patient/parents/legal guardian/POA seems to understand and agrees to proceed with anesthesia plan. Reviewed the physical assessment, medical history, allergy history and patient home medications list prior to surgery/procedure/anesthetic and documented any changes. Performed airway and anesthesia risk assessments. Anesthesia Type Anesthesia Type: MAC (see written pre anesthesia record for full assessment) Anesthesia Focused Assessment* Airway Assessment Mouth opens: >3 cm Mallampati Score: II Focused Labs Anesthesia Preop lab: CBC WBC 9.7 K/mm3 (4.4-11.0) 10/22/23 15:40 RBC 3.66 M/mm3 (4.2-5.4) L 10/22/23 15:40 Hgb 10.8 g/dL (12.0-15.0) L 10/22/23 15:40 Hct 32.4 % (37-47) L 10/22/23 15:40 Plt Count 196 K/mm3 (150-450) 10/22/23 15:40 CHEMISTRY COAG HCG, Quant 98477 mIU/mL (1-3) H 04/11/23 20:30 Urine Test Pending 04/07/24 09:00 Pre-Assessment Diagnosis/Proposed Procedure Planned Operative Procedure(s): Laparoscopic, Salpingectomy, Leep Anesthesia History 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 When Was Last Pacemaker Check QUESTION #4 FULL TEXT: You/Your Family Experience fever (hyperthermia) with Anesthesia Last Oral Intake Last Oral intake: Last Oral Intake NPO since Meds taken in AM with sips of water? Meds patient instructed to take am of surgery PONV PONV - hospitality housekeeper: PONV - hospitality housekeeper Female Yes 03/07/24 09:34 HX of Motion Sickness No 03/07/24 09:34 HX of N/V After Surgery No 03/07/24 09:34 Non-Smoker No 03/07/24 09:34 Duration of Surgery greater No 03/07/24 09:34 than 60 minutes Number of Risk Factors 1 03/07/24 09:34 PONV Score Low Risk 03/07/24 09:34 Height & Weight Height & Weight: Anesthesia: Height & Weight Height 5 ft 8 in 10/22/23 15:44 Respiratory Assessment Respiratory Assessment - hospitality housekeeper: Respiratory Tract Infection Hx - hospitality housekeeper Hx Respiratory Tract Infection Yes: GETTING BETTER 03/07/24 09:34 STOP Sleep Apnea STOP Sleep Apnea - hospitality housekeeper: STOP Sleep Apnea - hospitality housekeeper Hx Hypertension No 03/07/24 09:34 Hx Sleep Apnea No 03/07/24 09:34 CPAP BIPAP Do you snore loudly (louder No 03/07/24 09:34 than talking or can be heard Do you often feel tired/ No 03/07/24 09:34 fatigued/ sleepy during daytime? Has anyone observed you stop No 03/07/24 09:34 breathing during sleep? STOP Results Negative 03/07/24 09:34 QUESTION #5 FULL TEXT : Do you snore loudly (louder than talking or can be heard through closed doors)? Tobacco Use History Tobacco Use History - hospitality housekeeper: Tobacco Use History - hospitality housekeeper Tobacco Use Smoking Status Current every day smoker 03/07/24 09:34 Hx Tobacco Use Yes: vaping 03/07/24 09:34 Years Smoking Packs Smoked per Day Smoking Cessation Date was within the last 15 years Hx Smoking Cessation Date Hx Smoking Cessation Counseling Hematologic Medial History Hematologic Hx - hospitality housekeeper: Hematologic Medical Hx - conveyor loader Hx of Blood Transfusion No 03/07/24 09:34 Hx of Transfusion in last 3 No 03/07/24 09:34 Months Date of Last Transfusion (if within last 3 months) Ever experience any problems No 03/07/24 09:34 with transfusion(s)? Specify any problems Hx of Preganancy in last 3 No 03/07/24 09:34 Months Nurse Filling Out Transfusion [facility] 03/07/24 09:34 & Questions: Date: 03/07/24 03/07/24 09:34 Time: 09:41 03/07/24 09:34 Patient unable to answer at this time (ie. confused, unrespo /Reproduction History /Reproductive History - hospitality housekeeper: /Reproductive Hx- hospitality housekeeper Hx Now No 03/07/24 09:34 Gestational Age (in weeks): EDC: Hx Hx Para Hx Section SAB No 03/07/24 09:34 [facility] Medical History Abrasion Smoker Vaginal delivery Tobacco use 38 weeks gestation of Laceration, obstetrical, first degree (spontaneous vaginal delivery) HGSIL (high grade squamous intraepithelial lesion) on Pap smear of cervix Tobacco use affecting , antepartum History of depression Elective induction of labor planned 39 weeks gestation of depression Home Medications ?Medication ?Instructions ?Recorded ?Last Taken ?Type norethindrone 1 mg-ethinyl 1 tab PO DAILY 03/07/24 Unknown History estradiol 20 mcg (21)-iron 75 mg (7) tablet (Fabian Fe 07/24 (28)) Allergy/AdvReac Type Severity Reaction Status Date / Time No Known Allergies Allergy Verified 06/11/23 08:33 Surgical History History of wisdom tooth extraction History of surgery Social History Smoking Status: Current every day smoker tobacco type: e-cigarettes Review of Systems (Anesthesia) ROS Narrative System reviewed and no additional complaints, except as documented.
[2024-04-07 09:14] LABS: Internal QC Validated? YES +Cl - CLEAR BKGD; Pregnancy, Urine Negative Negative
[2024-04-07 09:28] LABS: Hematocrit 37.6 % (37-47); Hemoglobin 12.4 g/dL (12.0-15.0); Mean Corpuscular Hgb 29.4 pg (27.0-32.0); Mean Corpuscular Volume 89.1 fL (81-99); Mean Platelet Vol. 9.6 fl (6.2-12.0); Platelet Count 255 K/mm3 (150-450); RBC Distribution Width CV 11.9 % (11.6-14.6); RBC Distribution Width SD 38.4 fl (35.1-43.9); Red Blood Count 4.22 M/mm3 (4.2-5.4); White Blood Count 6.2 K/mm3 (4.4-11.0)
--- NOTE | 2024-04-07 09:50 | PCM.PN.BLA ---
Progress Note Pt seen in pre op. She no longer desires tubal sterilization. Desires to proceed with LEEP. Assessment & Plan Assessment/Plan (1) Pap smear of cervix with ASCUS, cannot exclude HGSIL: PLAN: Pt seen in pre op. She no longer desires a tubal sterilization. Discussed r/b/a LEEP and she desires to proceed with a LEEP. Her is planning a vasectomy. (2) HPV test positive:
--- NOTE | 2024-04-07 10:10 | CONE_PTH ---
PATIENT: JEANMARIE ROSE LOC: [place] U#:[id number] AGE/SX: 28/F ROOM: RE04/07/[address]: Dr. Lindsay Petty DO : 1995 BED: DIS: 04/07/2024 SPEC #: [id number] RECD: 04/07/24 13:13 STATUS: DENISE REHermelindo #: [id number] KARLA: 04/07/24 10:[address]: Lindsay Petty DEPT: SURGICAL PATHOLOGY RECD BY: Solomon Rcok ENTERED: 04/07/24 13:27 SP TYPE: Leep Cone SELENE DR: Dory Primary Care Phys Tissues: A - Uterine cervix, NOS B - Uterine cervix, NOS C - UTERINE CERVIX LEEP Procedures: Surgery Specimen Level IV Surgery Specimen Level V Comments: @ Specimen number changed from [id number] to [id number] @ on 04/07/24 at 1330 by RUCHI. HEADER OPERATION: Leep cone PRE-OP DIAGNOSIS: Cervical high risk HPV TISSUE SUBMITTED: A- Cervical posterior lip, B- Cervical anterior lip, C- Endocervix MICROSCOPIC DIAGNOSIS A. Cervix, posterior lip, leep colonization: Focal minimal changes consistent with HPV cytopathic effects. See comment. B. Cervical anterior lip, leep colonization: Focal minimal changes consistent with HPV cytopathic effects. See comment. C. Endocervix, leep colonization: Fragments of ecto and endocervical mucosa with focal minimal changes consistent with HPV cytopathic effects. See comment. 04/10/2024 COMMENT A, B, C. Resection margins are free of dysplastic changes. Immunohistochemistry ([id number]) for surrogate HPV marker (p16) supports the above diagnosis. Case has been reviewed in consultation with Dr. Romeo who concurs with the above diagnosis. IDC:AM MICROSCOPIC DESCRIPTION Slides are reviewed. GROSS DESCRIPTION A. Received in fixative is one container labeled with the patient's name and designated Cervical posterior lip. The specimen consists of a piece of lopez indurated tissue consisting of a leep colonization measuring 1.5 x 1.2 cm and up to 0.5cm in thickness. Also present in the container are two detached pieces of lopez indurated tissue measuring 1.0 x 0.3 x 0.1cm and 2.2 x 0.2 x 0.1cm. No mucosal lesion is identified. Nonmucosal surface is inked black. Two larger pieces are serially sectioned. The entire specimen is submitted in four cassettes as follows: 1&2- largest piece, 3&4- two smaller pieces. B. Received in fixative is one container labeled with the patient's name and designated Cervical anterior lip. The specimen consists of a piece of lopez indurated tissue consisting of a leep colonization measuring 2.0 x 0.6 x 0.6cm. No mucosal lesion is identified. Nonmucosal lesion is inked black. This specimen is serially sectioned and submitted entirely in two cassettes. C. Received in fixative is one container labeled with the patient's name and designated Endocervix. The specimen consists of two pieces of disrupted piece of lopez soft tissue measuring in aggregate 1.0 x 0.7 x 0.2cm. The entire specimen is submitted in one cassette. SJ 04/07/2024 TC:5 CPT: 93415 x3
[2024-04-07] MEDS: Lidocaine 1%/Epi 1:200 (30ml) 30 ML AMPUL (10:40)
[2024-04-07] MEDS: FERRIC SUBSULFATE 8 GM SOLN (10:50)
--- NOTE | 2024-04-07 11:03 | PCM.POST.ANE ---
Anesthesia: Postop Eval I Current Vital Signs Temperature: 97.2 F Pulse Rate: 60 Blood Pressure: 102/63 Respiratory Rate: 18 Pulse Ox: 96 Assessment Airway patent: Yes Spontaneous unlabored respirations: Yes nausea: No Vomiting: No Anesthesia Complication: No Fluid Hydration Crystalloid volume administer (ml): 0 Total IV fluid infused: 0 Progress Note Anesthesia document: Postop Eval 1 completed: Yes
--- NOTE | 2024-04-07 11:04 | DCINST_ITS ---
Discharge Instructions Diet Discharge Diet: No restrictions Activity Discharge Activity: May Drive (once you are more than 24 hours out from surgery) and May Shower (once you are more than 24 hours out from surgery) May resume sexual activity in: 4 weeks (nothing in the vagina for 4 weeks including no soaking in water) Ice area for (Minutes): 15 Weight Bearing Status: Weight bearing as tolerated Dressing / Incision Call your doctor if you observe: Fever of 101 or Higher, Coldness, Increased Pain, Numbness or Tingling, Change in Color, Inability to urinate, Inability to have a bowel movement, Using more than 1 pad per hour, Shortness of breath, Dizziness, Fainting spells, Swelling in the ankles, Chest pain, Prolonged hiccupping, Increased palpitations (irregular heartbeat), Calf discomfort and Uncontrolled pain Follow Up Care Please Follow Up With: Lindsay Petty DO When: 2-4 weeks post op Test Results: Test results from this visit will be discussed in further detail at your follow- up appointment, if applicable. Discharge Plan Admission Primary Reason for Your Visit: surgery Attending Provider: Lindsay Petty Primary Care Provider: Care Physician,Dory Primary Instructions Print Language: [place] Discharge Orders/Prescriptions Prescriptions: New ibuprofen 600 mg tablet 600 mg PO Q6H PRN (Reason: pain) Qty: 30 0RF Continued norethindrone-e.estradiol-iron [Fabian Fe 07/24 (28)] 1 mg-20 mcg (21)/75 mg (7) tablet 1 tab PO DAILY Referrals / Follow Up: Care Physician,No Primary [Primary Care Provider] - Disposition Disposition (needs filled in before D/C Order can be placed): Home, Self Care
--- NOTE | 2024-04-07 11:20 | OP.PCM_ITS ---
Problems Associated Problem List Diagnoses (1) HPV test positive: (2) Pap smear of cervix with ASCUS, cannot exclude HGSIL: Report of Operation Date of Procedure: 04/07/24 Pre-Operative Diagnosis: ASC-H pap +HPV for several years Post-Operative Diagnosis: As above Surgery/Procedure Performed:: LEEP with ECC Description of Surgical Findings:: Grossly normal appearing cervix. Minimal descent of uterus and cervix. Normal appearing vagina and vulva Surgeon: Lindsay Petty gear room keeper: None Type of Anesthesia: MAC Special Medications: None Specimen's removed: Cervical biopsy - anterior lip and posterior lip Endocervix Drains: None Estimated Blood Loss (mL): < 10 Fluids Replaced: None Description of Procedure: Patient was taken to the OR where MAC anesthesia was induced and found to be adequate. She was prepped and draped in dorsal lithotomy position using yellow fin stirrups. A speculum and side wall retractor were placed in the vagina to o btain good visualization of the cervix. The anterior lip of the cervix was grasped with a single tooth tenaculum. 10 cc of 1% lidocaine with epinephrine was injected circumferentially within the cervix. A 2 cm x 1 cm LOOP was used in 3 passes to obtain cervical biopsies: anterior lip, posterior lip, and endocervix. Endocervical curettings were obtained. The specimens were sent to pathology for review. The cervical bed was cauterized with a roller ball. Hemostasis was noted and Monsel's solution was placed. All instruments were removed from the vagina and a vaginal sweep performed. Instrument and sponge counts were correct and the patient was taken to the recovery room in stable condition. Grafts/Implants Used: None Complications None Admit VTE Documentation VTE Present on Admission: No VTE Mechan Device Prophylaxis: SCD's
--- NOTE | 2024-04-07 14:36 | POSTOPAN2_ITS ---
Anesthesia Postop Eval I Sum Postop Eval Completion status Anesthesia document: Postop Eval 1 completed: Yes Anesthesia Postop Eval I Summary Anesthesia Postop Eval I Summary: Anesthesia Postop Eval I: Assessment Summary Airway patent Yes 04/07/24 11:03 [employer]CSIR Spontaneous unlabored Yes 04/07/24 11:03 [employer]CSIR respirations Mental status nausea No 04/07/24 11:03 [employer]CSIR Vomiting No 04/07/24 11:03 [employer].CSIR Anesthesia Postop Eval I: Fluid Summary Crystalloid volume administer 0 04/07/24 11:03 [employer].CSIR (ml) Colloids volume administered ( ml) Blood Product volume administered (ml) Total IV fluid infused 0 04/07/24 11:03 [employer].CSIR Anesthesia Postop Eval I: Summary Notes Anesthesia Complication No 04/07/24 11:03 [employer].CSIR Anesthesia Complication Comment: Post-operative progress note Anesthesia: Postop Eval II Evaluation Mental status: Awake Pain Level: 0 nausea: No Vomiting: No
--- NOTE | 2024-04-07 14:36 | PCM.POSTANE2 ---
Anesthesia Postop Eval I Sum Postop Eval Completion status Anesthesia document: Postop Eval 1 completed: Yes Anesthesia Postop Eval I Summary Anesthesia Postop Eval I Summary: Anesthesia Postop Eval I: Assessment Summary Airway patent Yes 04/07/24 11:03 [employer].CSIR Spontaneous unlabored Yes 04/07/24 11:03 [employer].CSIR respirations Mental status nausea No 04/07/24 11:03 [employer].CSIR Vomiting No 04/07/24 11:03 [employer].CSIR Anesthesia Postop Eval I: Fluid Summary Crystalloid volume administer 0 04/07/24 11:03 [employer]ER.CSIR (ml) Colloids volume administered ( ml) Blood Product volume administered (ml) Total IV fluid infused 0 04/07/24 11:03 [employer].CSIR Anesthesia Postop Eval I: Summary Notes Anesthesia Complication No 04/07/24 11:03 [employer].CSIR Anesthesia Complication Comment: Post-operative progress note Anesthesia: Postop Eval II Evaluation Mental status: Awake Pain Level: 0 nausea: No Vomiting: No
== END 2024-04-07 12:03 | disposition home or self-care (01) ==
LOC: SDC 08:54 → AC 08:55
PROVIDERS: Anesthesiology; Referring Provider Obstetrics & Gynecology; Visit Provider Obstetrics & Gynecology
PROC: 0UBC7ZZ Excision of Cervix, Via Natural or Artificial Opening (ICD-10-PCS; CPT 57522; principal; 2024-04-07 09:55)
DX: R87.810 Cervical high risk human papillomavirus (HPV) DNA test positive (principal); R87.621 Atypical squamous cells cannot exclude high grade squamous intraepithelial lesion on cytologic smear of vagina (ASC-H); Z87.891 Personal history of nicotine dependence; Z30.2 Encounter for sterilization
CPT/HCPCS: 57522; 81025; 85027; 86850; 86900; 86901; 88305; 88307; 88341; 88342; A4216; J2405